=== PATIENT | female | born 1975 | race African-American/Black ===

== ENCOUNTER 2016-09-16 21:17 | Emergency (ER) | payer SELFPAY ==
[2016-09-16 21:31] VITALS: BP 193/124
[2016-09-16] MEDS ORDERED: ASPIRIN 81 MG TABLET, CHEWABLE PO ONE (21:48)
[2016-09-16] MEDS ORDERED: IPRATROPIUM/ALBUTEROL 0.5-2.5 MG/3 ML AMPUL NEB ONE (22:44)
[2016-09-16 22:55] LABS: ABSOLUTE BASOPHILS # (AUTO) 0.1 10^3/uL (0.0-0.2); ABSOLUTE EOSINOPHILS # (AUTO) 0.5 10^3/uL (0.0-0.6); ABSOLUTE LYMPHOCYTES (AUTO) 3.4 10^3/uL (0.5-4.7); ABSOLUTE MONOCYTES (AUTO) 0.7 10^3/uL (0.1-1.4); ABSOLUTE NEUT (AUTO) 6.3 10^3/uL (1.7-8.2); BASOPHILS % (AUTO) 1.3 % (0-2); EOSINOPHILS % (AUTO) 4.2 % (0-6); HEMATOCRIT 41.8 % (36.0-47.0); HEMOGLOBIN 13.4 g/dL (12.0-15.5); HGB HCT DIFFERENCE -1.6; LYMPHOCYTES % (AUTO) 31.1 % (13-45); MEAN CORPUSCULAR HEMOGLOBIN 24.5 pg (27.0-33.4); MEAN CORPUSCULAR VOLUME 77 fl (80-97); MONOCYTES % (AUTO) 6.4 % (3-13); RED BLOOD COUNT 5.45 10^6/uL (3.72-5.28); WHITE BLOOD COUNT 11.1 10^3/uL (4.0-10.5)
[2016-09-16 23:15] LABS: ALANINE AMINOTRANSFERASE 29 U/L (9-52); ALBUMIN 3.8 g/dL (3.5-5.0); ALKALINE PHOSPHATASE 63 U/L (38-126); ANION GAP 11 (5-19); ASPARTATE AMINO TRANSFERASE 16 U/L (14-36); BILIRUBIN,DIRECT 0.3 mg/dL (0.0-0.4); BILIRUBIN,TOTAL 0.5 mg/dL (0.2-1.3); BLOOD UREA NITROGEN 10 mg/dL (7-20); CALCIUM 9.3 mg/dL (8.4-10.2); CARBON DIOXIDE 30 mmol/L (22-30); CHLORIDE 99 mmol/L (98-107); CREATINE KINASE 86 U/L (30-135); CREATININE RESULT 0.78 mg/dL (0.52-1.25); GLUCOSE 130 mg/dL (75-110); POTASSIUM 3.5 mmol/L (3.6-5.0); SODIUM 139.5 mmol/L (137-145); TOTAL PROTEIN 7.5 g/dL (6.3-8.2)
[2016-09-16 23:29] LABS: CREATINE KINASE MB 0.43 ng/mL (<4.55)
[2016-09-16 23:30] LABS: TROPONIN I < 0.012 ng/mL
--- NOTE | 2016-09-17 07:11 | EKG REPORT ---
SEVERITY:- ABNORMAL ECG - SINUS RHYTHM PROBABLE LEFT ATRIAL ABNORMALITY INCOMPLETE RIGHT BUNDLE BRANCH BLOCK LEFT VENTRICULAR HYPERTROPHY : Confirmed by: Milla Arthur MD 17-Sep-2016 07:10:36
== END 2016-09-16 23:52 | disposition left against medical advice (07) ==
LOC: ER 21:17
DX: Z53.21 Procedure and treatment not carried out due to patient leaving prior to being seen by health care provider (principal)
CPT/HCPCS: 36415; 71010; 80053; 82550; 82553; 84484; 85025; 93005; 93010; 94640; J7620

== ENCOUNTER 2016-09-17 23:40 | Emergency (ER) | payer SELFPAY ==
[2016-09-18 00:23] VITALS: BP 147/113
--- NOTE | 2016-09-18 17:44 | EKG REPORT ---
SEVERITY:- ABNORMAL ECG - SINUS TACHYCARDIA PROBABLE LEFT ATRIAL ABNORMALITY INCOMPLETE RIGHT BUNDLE BRANCH BLOCK LEFT VENTRICULAR HYPERTROPHY : Confirmed by: Milla Arthur MD 18-Sep-2016 17:43:16
== END 2016-09-18 01:00 | disposition left against medical advice (07) ==
LOC: ER 23:40
DX: Z53.21 Procedure and treatment not carried out due to patient leaving prior to being seen by health care provider (principal)
CPT/HCPCS: 93005; 93010

== ENCOUNTER 2016-09-21 14:47 | Emergency (ER) | payer SELFPAY ==
[2016-09-21 15:33] VITALS: BP 152/109
[2016-09-21] MEDS ORDERED: PREDNISONE 20 MG TABLET PO ONE (15:46)
[2016-09-21] MEDS ORDERED: ALBUTEROL SULFATE 0.083% NEB 2.5 MG/3 ML AMPUL NEB ONE (15:46)
--- NOTE | 2016-09-21 15:46 | ER Document Report ---
HPI - HPI Patient complains to provider of: Wheezing, shortness of breath and productive cough Onset: Last week Onset/Duration: Persistent Quality of pain: Achy Severity: Moderate Pain Level: 3 Associated Symptoms: Chills, Productive cough, Sinus pain/drainage. denies: Fever Exacerbated by: Coughing Relieved by: Denies Similar symptoms previously: Yes Recently seen / treated by doctor: No - Came to the emergency room twice a week but LWBS - ROS ROS below otherwise negative: Yes Systems Reviewed and Negative: Yes All other systems reviewed and negative - CONSTITUTIONAL Constitutional: REPORTS: Chills. DENIES: Fever - EENT EENT: REPORTS: Congestion - NEURO Neurology: DENIES: Headache - CARDIOVASCULAR Cardiovascular: DENIES: Chest pain - RESPIRATORY Respiratory: REPORTS: Trouble Breathing, Coughing - GASTROINTESTINAL Gastrointestinal: DENIES: Abdominal Pain - URINARY Urinary: DENIES: Dysuria - REPRODUCTIVE Reproductive: DENIES: : - MUSCULOSKELETAL Musculoskeletal: REPORTS: Extremity pain - DERM Skin Color: Normal Skin Problems: None Past Medical History - General Information source: Patient - Social History Smoking Status: Never Smoker Chew tobacco use (# tins/day): No Frequency of alcohol use: None Drug Abuse: None Lives with: Family Family History: Reviewed & Not Pertinent - Past Medical History Cardiac Medical History: Reports: Hx Hypertension - Patient states she has been out of her medication for a couple of months. GI Medical History: Reports: Hx Gastritis, Hx Gastroesophageal Reflux Disease, Hx Hiatal Hernia - states had EGD and colonoscopy in 1999 in [place] which were normal - Past Surgical History: Reports: Hx Hysterectomy - Immunizations Hx Diphtheria, Pertussis, Tetanus Vaccination: Yes - 05/02/2006 Vertical Provider Document - CONSTITUTIONAL Agree With Documented VS: Yes Exam Limitations: No Limitations General Appearance: WD/WN, No Apparent Distress - INFECTION CONTROL TRAVEL OUTSIDE OF THE [place] IN LAST 30 DAYS: No - HEENT HEENT: Atraumatic, Normocephalic, Pharyngeal Erythema - mild, no exudates. negative: Pharyngeal Exudate, Tympanic Membrane Red - NECK Neck: Normal Inspection, Supple - RESPIRATORY Respiratory: Rhonchi, Wheezing O2 Sat by Pulse Oximetry: 100 - CARDIOVASCULAR Cardiovascular: Regular Rate, Regular Rhythm - GI/ABDOMEN Gastrointestinal: Abdomen Soft - MUSCULOSKELETAL/EXTREMETIES Musculoskeletal/Extremeties: CARROLL PATEL - NEURO Level of Consciousness: Awake, Alert, Appropriate - DERM Integumentary: Warm, Dry Course - Re-evaluation Re-evalutation: 09/21/16 17:52 X-ray normal and discussed with patient. After 2 nebulizer treatments and prednisone 60 mg, minimal expiratory wheezing lower lobes noted. - Vital Signs Vital signs: Temp Pulse Resp BP Pulse Ox 98.1 F 85 16 152/109 H 100 09/21/16 15:29 09/21/16 15:29 09/21/16 15:29 09/21/16 15:29 09/21/16 15:29 Discharge - Discharge Clinical Impression: Bronchitis Condition: Good Disposition: HOME, SELF-CARE Additional Instructions: Take meds as prescribed Start prednisone tomorrow as you were already given a dose today Albuterol inhaler 2 puffs every 4 hours 2 days, then every 4 hours as needed push Fluids Delsym or Robitussin for cough Follow-up with your doctor Tuesday for recheck, earlier if no improvement Return as needed Prescriptions: Azithromycin [Zithromax 250 mg Tablet] 250 mg PO ASDIR PRN #6 tablet PRN Reason: Prednisone [Deltasone 10 mg Tablet] 10 mg PO ASDIR PRN #21 tablet PRN Reason:
--- NOTE | 2016-09-21 16:42 | RADIOLOGY REPORT (SQ) ---
EXAM DESCRIPTION: CHEST PA/LAT COMPLETED DATE/TIME: 09/21/2016 4:28 pm REASON FOR STUDY: wheezing, productive cough COMPARISON: March 2016 EXAM PARAMETERS: NUMBER OF VIEWS: two views TECHNIQUE: Digital Frontal and Lateral radiographic views of the chest acquired. RADIATION DOSE: NA LIMITATIONS: none FINDINGS: LUNGS AND PLEURA: No opacities, masses or pneumothorax. No pleural effusion. MEDIASTINUM AND HILAR STRUCTURES: No masses or contour abnormalities. HEART AND VASCULAR STRUCTURES: The configuration of the heart and mediastinal structures is unchanged . BONES: Degenerative changes are identified in the thoracic spine. HARDWARE: None in the chest. OTHER: No other significant finding. IMPRESSION: No significant interval change. No acute changes. Other findings as noted above TECHNICAL DOCUMENTATION: JOB ID: [id number] [employer]- All Rights Reserved
[2016-09-21] MEDS ORDERED: IPRATROPIUM/ALBUTEROL 0.5-2.5 MG/3 ML AMPUL NEB ONE (17:14)
[2016-09-21] MEDS ORDERED: HYDROCODONE/ACETAMINOPHEN 5-325 MG TABLET PO ONE (17:47)
[2016-09-21] MEDS ORDERED: ALBUTEROL SULFATE HFA (90 MCG/PUFF) 8 GM MDI (1 MDI/ER DISP) IH ONE (17:51)
== END 2016-09-21 18:12 | disposition home or self-care (01) ==
LOC: ER 14:47
DX: J40 Bronchitis, not specified as acute or chronic (principal); R05 Cough; R68.83 Chills (without fever); J34.89 Other specified disorders of nose and nasal sinuses; R52 Pain, unspecified; R06.2 Wheezing; R06.02 Shortness of breath; I10 Essential (primary) hypertension
CPT/HCPCS: 94640 ×2; 99283; 71020; J7512; J3490; J7620

== ENCOUNTER 2016-12-14 18:30 | Emergency (ER) | payer SELFPAY ==
[2016-12-14] MEDS ORDERED: LIDOCAINE 2% VISCOUS SOLN 20 ML UDCUP PO ONE (19:17)
[2016-12-14] MEDS ORDERED: IBUPROFEN 800 MG TABLET PO ONE (19:17)
--- NOTE | 2016-12-14 19:18 | ER Document Report ---
HPI - HPI Patient complains to provider of: sore throat Onset: Other - 3 days Onset/Duration: Gradual Quality of pain: Achy Pain Level: 3 Context: Patient presents complaining of sore throat for the past 3 days. Patient does complain of fever and chills. Patient additionally complains of left forearm tenderness that she has had ever since having an IV infiltrate from March of last year. Patient denies any new injury to the left forearm. Associated Symptoms: Chills, Fever, Sore throat. denies: Headache, Nausea, Vomiting Exacerbated by: Denies Relieved by: Denies Similar symptoms previously: Yes Recently seen / treated by doctor: No - ROS ROS below otherwise negative: Yes Systems Reviewed and Negative: Yes All other systems reviewed and negative - CONSTITUTIONAL Constitutional: REPORTS: Fever, Chills - EENT EENT: REPORTS: Sore Throat. DENIES: Ear Pain, Congestion - RESPIRATORY Respiratory: DENIES: Coughing - GASTROINTESTINAL Gastrointestinal: DENIES: Nausea, Patient vomiting - REPRODUCTIVE Reproductive: DENIES: : - MUSCULOSKELETAL Musculoskeletal: REPORTS: Extremity pain - DERM Skin Color: Normal Skin Problems: None Past Medical History - General Information source: Patient - Social History Smoking Status: Never Smoker Frequency of alcohol use: None Drug Abuse: None Occupation: [employer] Family History: Reviewed & Not Pertinent Patient has suicidal ideation: No Patient has homicidal ideation: No - Past Medical History Cardiac Medical History: Reports: Hx Hypertension - Patient states she has been out of her medication for a couple of months. Denies: Hx Coronary Artery Disease, Hx DVT, Hx Heart Attack Renal/ Medical History: Denies: Hx Peritoneal Dialysis GI Medical History: Reports: Hx Gastritis, Hx Gastroesophageal Reflux Disease, Hx Hiatal Hernia - states had EGD and colonoscopy in 1999 in [place] which were normal -. Denies: Hx Crohn's Disease, Hx Diverticulitis, Hx Hepatitis, Hx Irritable Bowel, Hx Liver Failure Infectious Medical History: Denies: Hx Hepatitis Past Surgical History: Reports: Hx Hysterectomy - Immunizations Hx Diphtheria, Pertussis, Tetanus Vaccination: Yes - 05/02/2006 Vertical Provider Document - CONSTITUTIONAL Agree With Documented VS: Yes Exam Limitations: No Limitations General Appearance: WD/WN, No Apparent Distress - INFECTION CONTROL TRAVEL OUTSIDE OF THE [place] IN LAST 30 DAYS: No - HEENT HEENT: Atraumatic, Normocephalic, Pharyngeal Tenderness, Pharyngeal Erythema Notes: 3+tonsilar hypertrophy - NECK Neck: Normal Inspection, Supple. negative: Lymphadenopathy-Left, Lymphadenopathy-Right - RESPIRATORY Respiratory: Breath Sounds Normal, No Respiratory Distress, Chest Non-Tender O2 Sat by Pulse Oximetry: 98 - CARDIOVASCULAR Cardiovascular: Regular Rate, Regular Rhythm Pulses: Normal: Radial - BACK Back: Normal Inspection - MUSCULOSKELETAL/EXTREMETIES Musculoskeletal/Extremeties: MAEW, FROM, Tender - Generalized tenderness to the volar aspect of left forearm, no abscess, normal skin color and temperature, normal strength to left upper extremity - NEURO Level of Consciousness: Awake, Alert, Appropriate Motor/Sensory: No Motor Deficit - DERM Integumentary: Warm, Dry, No Rash Course - Re-evaluation Re-evalutation: 12/14/16 20:35 The patient has been informed that they may have pre-hypertension or hypertension based on a blood pressure reading in the emergency department. I recommend that patient call the primary care provider listed on their discharge instructions or a physician of their choice by this week to arrange follow-up for further evaluation of possible pre-hypertension or hypertension. 12/14/16 21:10 Patient advised to follow-up with a care provider for further evaluation of chronic forearm tenderness - Vital Signs Vital signs: Temp Pulse Resp BP Pulse Ox 100.0 F 103 H 156/111 H 98 12/14/16 18:41 12/14/16 18:41 12/14/16 18:41 12/14/16 18:41 - Laboratory Laboratory results interpreted by me: 12/14/16 20:33 Labs- Entire Visit 12/14/16 19:36 Group A Strep Rapid NEGATIVE Discharge - Discharge Clinical Impression: Tonsillitis, Elevated blood pressure reading Condition: Stable Disposition: HOME, SELF-CARE Instructions: Tonsillitis ([facility]), Oral Narcotic Medication ([facility]), Use of Over- The-Counter Ibuprofen ([facility]), Corticosteroid Medication ([facility]) Additional Instructions: Return immediately for any new or worsening symptoms Followup with your primary care provider, call tomorrow to make a followup appointment Throat culture is pending, we will call if you need any different treatment Prescriptions: Naproxen [Naprosyn 250 Nmg Tablet] 1 tab PO BID #14 tablet Forms: Elevated Blood Pressure, Return to Work Referrals: [facility] [Provider Group] - Follow up as needed [facility] [Provider Group] - Follow up as needed
[2016-12-14] MEDS ORDERED: HYDROCODONE/ACETAMINOPHEN 5-325 MG 6 TAB/DSPK PO PRN (20:32)
[2016-12-14] MEDS ORDERED: DEXAMETHASONE 4 MG TABLET PO ONE (20:32)
[2016-12-14 20:58] VITALS: BP 153/100
== END 2016-12-14 20:55 | disposition home or self-care (01) ==
LOC: ER 18:30
DX: J03.90 Acute tonsillitis, unspecified (principal); R03.0 Elevated blood-pressure reading, without diagnosis of hypertension; R50.9 Fever, unspecified; Z90.710 Acquired absence of both cervix and uterus
CPT/HCPCS: 99283; 87070; 87880; J3490

== ENCOUNTER 2016-12-30 14:19 | Emergency (ER) | payer SELFPAY ==
[2016-12-30] MEDS ORDERED: IPRATROPIUM/ALBUTEROL 0.5-2.5 MG/3 ML AMPUL NEB ONE (15:09)
--- NOTE | 2016-12-30 15:11 | ER Document Report ---
ED Medical Screen (RME) - General Chief Complaint: Cough Stated Complaint: COUGH Time Seen by Provider: 12/30/16 15:09 Mode of Arrival: Ambulatory Information source: Patient Notes: 41-year-old female with a history of hypertension, morbid obesity who presents to the emergency room with drills, fever, cough productive of green sputum, shortness of breath. Patient also states that she checked her sugar (her friend 's glucometer) and it was 200 yesterday. TRAVEL OUTSIDE OF THE [place] IN LAST 30 DAYS: No - Related Data Allergies/Adverse Reactions: creosote Allergy (Mild, Uncoded 12/30/16 14:24) Anaphylaxis Past Medical History - Social History Chew tobacco use (# tins/day): No Frequency of alcohol use: None Drug Abuse: None - Past Medical History Cardiac Medical History: Reports: Hx Hypertension - Patient states she has been out of her medication for a couple of months. Denies: Hx Coronary Artery Disease, Hx DVT, Hx Heart Attack Renal/ Medical History: Denies: Hx Peritoneal Dialysis GI Medical History: Reports: Hx Gastritis, Hx Gastroesophageal Reflux Disease, Hx Hiatal Hernia - states had EGD and colonoscopy in 1999 in [place] which were normal -. Denies: Hx Crohn's Disease, Hx Diverticulitis, Hx Hepatitis, Hx Irritable Bowel, Hx Liver Failure Infectious Medical History: Denies: Hx Hepatitis Past Surgical History: Reports: Hx Hysterectomy - Immunizations Hx Diphtheria, Pertussis, Tetanus Vaccination: Yes - 05/02/2006 Physical Exam - Vital signs Vitals: Temp Pulse Resp BP Pulse Ox 98.7 F 87 22 H 191/113 H 97 12/30/16 14:25 12/30/16 14:25 12/30/16 14:25 12/30/16 14:25 12/30/16 14:25 Notes: Physical exam: GENERAL: 41-year-old female, alert and oriented 3, no acute distress. She does appear congested. HEAD: Atraumatic, normocephalic. EYES: Pupils equal round and reactive to light, extraocular movements intact, sclera anicteric, conjunctiva are normal. ENT: TMs normal, nares patent, oropharynx clear without exudates. Moist mucous membranes. NECK: Normal range of motion, supple without ovious mass or JVD. LUNGS: Breath sounds clear to auscultation bilaterally and equal. No wheezes rales or rhonchi. HEART: Regular rate and rhythm without murmurs, rubs or gallops. ABDOMEN: Soft, normoactive bowel sounds. No tenderness to palpation. No guarding, no rebound. No masses appreciated. EXTREMITIES: Normal range of motion, no pitting or edema. No clubbing or cyanosis. NEUROLOGICAL: Cranial nerves II through XII grossly intact. Normal speech, moving all extremities. PSYCH: Normal mood, normal affect. SKIN: Warm, Dry, normal turgor, no rashes or lesions noted. Course - Vital Signs Vital signs: Temp Pulse Resp BP Pulse Ox 98.7 F 87 22 H 191/113 H 97 12/30/16 14:25 12/30/16 14:25 12/30/16 14:25 12/30/16 14:25 12/30/16 14:25
--- NOTE | 2016-12-30 15:36 | ER Document Report ---
ED General - General Mode of Arrival: Ambulatory Information source: Patient TRAVEL OUTSIDE OF THE [place] IN LAST 30 DAYS: No - HPI Onset: Other - Refer to HPI notes; x2 weeks Associated symptoms: Chest pain, Chills, Productive cough, Fever Similar symptoms previously: No Recently seen / treated by doctor: No <JAYNE GARCIA - Last Filed: 12/30/16 16:04> <ROB MORAN - Last Filed: 12/30/16 18:44> - General Chief Complaint: Cough Stated Complaint: COUGH Time Seen by Provider: 12/30/16 15:29 - HPI Notes: Patient is a 41-year-old female presenting emergency department with 2 weeks of multiple URI symptoms. Patient states that for the first week she had aches, chills and fevers. Patient states the second week she had some chest pain with cough, increased congestion, and green and brown sputum. Patient states her cough is only been present for the past 3 days. Patient states that she has not had a fever for the past week and half. Patient does not take any regular medications. Patient historically took hypertension medications but states that she is treating hypertension with diet. According to the patient's blood pressure in our records over a long period of time the patient does have history of hypertension. Patient also checked her blood glucose level with her friends glucose meter 2 days ago and the level was 200. Patient states that she took her blood glucose level because she had a dry mouth. (JAYNE GARCIA) - Related Data Allergies/Adverse Reactions: creosote Allergy (Mild, Uncoded 12/30/16 14:24) Anaphylaxis Past Medical History - General Information source: Patient - Social History Smoking Status: Never Smoker Cigarette use (# per day): No Chew tobacco use (# tins/day): No Frequency of alcohol use: None Drug Abuse: None Family History: None Patient has suicidal ideation: No Patient has homicidal ideation: No - Past Medical History Cardiac Medical History: Reports: Hx Hypertension - Not medicated or controlled. GI Medical History: Reports: Hx Gastritis, Hx Gastroesophageal Reflux Disease, Hx Hiatal Hernia - states had EGD and colonoscopy in 1999 in [place] which were normal - Past Surgical History: Reports: Hx Hysterectomy - Immunizations Hx Diphtheria, Pertussis, Tetanus Vaccination: Yes - 05/02/2006 <JAYNE GARCIA - Last Filed: 12/30/16 16:04> Review of Systems - Review of Systems Constitutional: See HPI, Chills, Fever, Malaise EENT: No symptoms reported Cardiovascular: No symptoms reported Respiratory: See HPI, Cough, Sputum, Wheezing Gastrointestinal: No symptoms reported Genitourinary: No symptoms reported Female Genitourinary: No symptoms reported Musculoskeletal: No symptoms reported Skin: No symptoms reported Hematologic/Lymphatic: No symptoms reported Neurological/Psychological: No symptoms reported -: Yes All other systems reviewed and negative <JAYNE GARCIA - Last Filed: 12/30/16 16:04> Physical Exam - Vital signs Interpretation: Hypertensive <JAYNE GARCIA - Last Filed: 12/30/16 16:04> <ROB MORAN - Last Filed: 12/30/16 18:44> - Vital signs Vitals: Temp Pulse Resp BP Pulse Ox 98.7 F 87 22 H 191/113 H 97 12/30/16 14:25 12/30/16 14:25 12/30/16 14:25 12/30/16 14:25 12/30/16 14:25 - Notes Notes: GENERAL: Alert, interacts well. No acute distress. HEAD: Normocephalic, atraumatic. EYES: Appear normal. Pupils equal, round, and reactive to light. ENT: Moist mucus membranes, tongue midline. NECK: Full range of motion. Supple. Trachea midline. LUNGS: C coarse breath sounds throughout, faint wheezing. No respiratory distress. HEART: Regular rate and rhythm. No murmurs, gallops, or rubs. ABDOMEN: Morbidly obese. Soft, non-tender. Non-distended. Normal bowel sounds. EXTREMITIES: Moves all 4 extremities spontaneously. Normal strength. Trace edema to the bilateral lower extremities. NEUROLOGICAL: Alert and oriented x3. Normal speech. No focal neurological deficits. GSC 15. PSYCH: Normal affect, normal mood. SKIN: Warm, dry, normal turgor. No rashes or lesions noted. (JAYNE GARCIA) Course - Laboratory Result Diagrams: 12/30/16 15:18 12/30/16 15:18 <JAYNE GARCIA - Last Filed: 12/30/16 16:04> - Laboratory Result Diagrams: 12/30/16 15:18 12/30/16 15:18 <ROB MORAN - Last Filed: 12/30/16 18:44> - Vital Signs Vital signs: Temp Pulse Resp BP Pulse Ox 98.7 F 87 22 H 191/113 H 97 12/30/16 14:25 12/30/16 14:25 12/30/16 14:25 12/30/16 14:25 12/30/16 14:25 - Laboratory Laboratory results interpreted by me: 12/30/16 12/30/16 12/30/16 15:18 15:18 15:18 RBC 5.29 H MCV 77 L MCH 25.3 L RDW 16.2 H Glucose 147 H Hemoglobin A1c % 7.2 H Discharge <JAYNE GARCIA - Last Filed: 12/30/16 16:04> <ROB MORAN - Last Filed: 12/30/16 18:44> - Discharge Clinical Impression: Viral upper respiratory tract infection with cough High blood pressure Qualifiers: Hypertension type: essential hypertension Qualified Code(s): I10 - Essential ( primary) hypertension Diabetes Qualifiers: Diabetes mellitus type: type 2 Diabetes mellitus complication status: without complication Diabetes mellitus nursing home insulin use: without nursing home use Qualified Code(s): E11.9 - Type 2 diabetes mellitus without complications Condition: Stable Disposition: HOME, SELF-CARE Additional Instructions: Upper Respiratory Illness: You have a viral infection of the respiratory passages -- a "cold." This common infection causes nasal congestion, drainage, and often sore throat and cough. It is caused by a virus and is highly contagious. The disease usually lasts a week or more, though the worst symptoms are usually over in 3 or 4 days. There is no "cure" for the viral infection -- it must run its course. If there is a complication, such as bacterial infection in the nose, sinuses, middle ear, or bronchial tubes, antibiotics may be required, but antibiotics won 't affect the virus. If you smoke, you should STOP!! Drink plenty of fluids. A humidifier may help. An expectorant medication or decongestant may make you more comfortable. Use acetaminophen or ibuprofen for fever or aches. See the doctor if fever persists over two or three days, if there is any significant worsening of your symptoms, or if you simply fail to improve as expected. High Blood Pressure, Requiring Treatment Your blood pressure is high. This is called "hypertension." Today's reading was_191/113_ (normal is less than 140/90). Your history and exam suggest that this is not a temporary problem. You need treatment of your blood pressure. If left untreated, high blood pressure greatly increases your risk of heart attack and stroke. Please don't ignore this problem. If you have blood pressure medicine but aren't using it regularly, start taking it again. Some simple things you can do to help are: Get some aerobic exercise for at least 20 minutes on a daily basis. (See your doctor before beginning any new exercise program.) Eat a low-fat diet. Lose excess weight. Avoid salty foods and avoid adding salt to any of the foods you eat. Avoid diet pills, decongestants, "energizing" herbs, and other medicines that elevate blood pressure. There are many different medicines that treat blood pressure. If your medication causes unpleasant side effects, call your doctor. There are others you can try. Treating hypertension is a life-long investment in your health. Diabetes: You have an abnormally high blood sugar, consistent with diabetes. All diabetics should follow a diet designed to control the blood sugar. Overweight diabetics should exercise regularly and lose weight. Home testing of blood sugars or urine sugar is required. Diabetic teaching is available to help you figure insulin doses and monitor the blood sugar. Call the physician if there is faintness, excess sleepiness, or very rapid breathing. If hypoglycemia (LOW blood sugar) develops, symptoms are shakiness, weakness, sweating, and confusion. In this case, you should eat or drink something with sugar at once. /////////////////////////////////////////////////////////////////////////////// //////////////////////////////////////////////////////////////////////////////// ///////////////// Take the medications as prescribed for blood pressure and high blood sugars. Try generic version of Robitussin-DM to help control your cough and congestion. Drink plenty of fluids and get plenty of rest. Follow-up with a local medical doctor to monitor your blood pressure and blood sugars, and to adjust medications as needed. Check your blood sugars at home on a daily basis. RETURN TO THE EMERGENCY ROOM IF ANY NEW OR WORSENING SYMPTOMS. Prescriptions: Lisinopril 20 mg PO DAILY #30 tablet Metformin HCl [Glucophage] 500 mg PO DAILY #30 tablet Referrals: [facility] [Provider Group] - Follow up in 1 week Scribe Attestation: 12/30/16 17:00 I personally performed the services described in the documentation, reviewed and edited the documentation which was dictated to the scribe in my presence, and it accurately records my words and actions. (ROB MORAN) Scribe Documentation - Scribe Written by Lidia:: Lidia Simmons, 12/30/2016 1615 acting as scribe for :: Joshua <JAYNE GARCIA - Last Filed: 12/30/16 16:04>
[2016-12-30 15:41] LABS: ABSOLUTE BASOPHILS # (AUTO) 0.1 10^3/uL (0.0-0.2); ABSOLUTE EOSINOPHILS # (AUTO) 0.2 10^3/uL (0.0-0.6); ABSOLUTE MONOCYTES (AUTO) 0.8 10^3/uL (0.1-1.4); ABSOLUTE NEUT (AUTO) 5.5 10^3/uL (1.7-8.2); BASOPHILS % (AUTO) 1.1 % (0-2); EOSINOPHILS % (AUTO) 2.1 % (0-6); HEMATOCRIT 40.6 % (36.0-47.0); HEMOGLOBIN 13.4 g/dL (12.0-15.5); HGB HCT DIFFERENCE -0.4; LYMPHOCYTES % (AUTO) 31.2 % (13-45); MEAN CORPUSCULAR HEMOGLOBIN 25.3 pg (27.0-33.4); MEAN CORPUSCULAR HGB CONC 32.9 g/dL (32.0-36.0); MEAN CORPUSCULAR VOLUME 77 fl (80-97); MONOCYTES % (AUTO) 8.3 % (3-13); RED BLOOD COUNT 5.29 10^6/uL (3.72-5.28); RED CELL DISTRIBUTION WIDTH 16.2 % (11.5-14.0); SEGMENTED NEUTROPHILS % (AUTO) 57.3 % (42-78); WHITE BLOOD COUNT 9.7 10^3/uL (4.0-10.5)
--- NOTE | 2016-12-30 15:56 | RADIOLOGY REPORT (SQ) ---
EXAM DESCRIPTION: CHEST PA/LAT COMPLETED DATE/TIME: 12/30/2016 3:31 pm REASON FOR STUDY: productive cough COMPARISON: 09/21/2016 EXAM PARAMETERS: NUMBER OF VIEWS: two views TECHNIQUE: Digital Frontal and Lateral radiographic views of the chest acquired. RADIATION DOSE: NA LIMITATIONS: none FINDINGS: LUNGS AND PLEURA: No opacities, masses or pneumothorax. No pleural effusion. MEDIASTINUM AND HILAR STRUCTURES: No masses or contour abnormalities. HEART AND VASCULAR STRUCTURES: Heart normal size. No evidence for failure. BONES: No acute findings. HARDWARE: None in the chest. OTHER: No other significant finding. IMPRESSION: NO SIGNIFICANT RADIOGRAPHIC FINDING IN THE CHEST. TECHNICAL DOCUMENTATION: JOB ID: [id number] [employer]- All Rights Reserved
[2016-12-30 16:07] LABS: ALANINE AMINOTRANSFERASE 23 U/L (9-52); ALBUMIN 3.9 g/dL (3.5-5.0); ALKALINE PHOSPHATASE 71 U/L (38-126); ANION GAP 13 (5-19); ASPARTATE AMINO TRANSFERASE 18 U/L (14-36); BILIRUBIN,DIRECT 0.4 mg/dL (0.0-0.4); BILIRUBIN,TOTAL 0.7 mg/dL (0.2-1.3); BLOOD UREA NITROGEN 10 mg/dL (7-20); CALCIUM 9.6 mg/dL (8.4-10.2); CARBON DIOXIDE 27 mmol/L (22-30); CHLORIDE 102 mmol/L (98-107); CREATININE RESULT 0.76 mg/dL (0.52-1.25); GLUCOSE 147 mg/dL (75-110); POTASSIUM 3.6 mmol/L (3.6-5.0); SODIUM 141.6 mmol/L (137-145); TOTAL PROTEIN 7.5 g/dL (6.3-8.2)
[2016-12-30 18:57] VITALS: BP 178/121
== END 2016-12-30 18:50 | disposition home or self-care (01) ==
LOC: ER 14:19
DX: J06.9 Acute upper respiratory infection, unspecified (principal); I10 Essential (primary) hypertension; E11.9 Type 2 diabetes mellitus without complications; R05 Cough; M79.1 Myalgia; R50.9 Fever, unspecified; R07.9 Chest pain, unspecified; R09.81 Nasal congestion
CPT/HCPCS: 94640; 99283; 36415; 85025; 80053; 83036; 71020; J7620

== ENCOUNTER 2018-03-27 12:30 | Emergency (ER) | payer SELFPAY ==
[2018-03-27] MEDS ORDERED: KETOROLAC TROMETHAMINE 60 MG/2 ML SDV IM ONE (14:08)
--- NOTE | 2018-03-27 14:13 | ER Document Report ---
ED General - General Chief Complaint: Low Back Pain Stated Complaint: BACK PAIN/NUMBNESS IN FINGERS Time Seen by Provider: 03/27/18 13:57 TRAVEL OUTSIDE OF THE [place] IN LAST 30 DAYS: No - HPI Notes: Patient is a 43-year-old female that presents to the emergency department for chief complaint of low back pain and right wrist pain. Patient presents for back pain that started 2 weeks ago. She states it is in her lower back and worse with movement. She has tried icy hot at home with some relief. She denies any injury or trauma. She denies any fevers or chills , saddle anesthesia, lower extremity numbness or weakness and bowel and bladder incontinence. She also reports numbness in her fingertips on her right hand as well as aching in her right wrist. 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 Patient does states she has prolonged periods of sitting at work. Past Medical History: Hypertension Past Surgical History: Negative Social History: Denies drugs alcohol and tobacco Family History: Reviewed and noncontributory for presenting illness Allergies: Reviewed, see documented allergy list. REVIEW OF SYSTEMS: CONSTITUTIONAL : No fever No chills No diaphoresis No recent illness EENT: No vision changes No congestion No sore throat CARDIOVASCULAR: No chest pain No palpitations RESPIRATORY: No shortness of breath No cough No difficulty breathing GASTROINTESTINAL: No abdominal pain No nausea No vomiting No diarrhea GENITOURINARY: No dysuria No hematuria No difficulty urinating MUSCULOSKELETAL: back pain No leg pain right wrist pain SKIN: No rashes No lesions LYMPHATIC: No swollen, enlarged glands. NEUROLOGICAL: No lightheadedness No headache No weakness No paresthesias PSYCHIATRIC: No anxiety No depression PHYSICAL EXAMINATION: Vital signs reviewed, nursing noted reviewed. GENERAL: Well-appearing, well-nourished and in no acute distress. HEAD: Atraumatic, normocephalic. EYES: Eyes appear normal, extraocular movements intact, sclera anicteric, conjunctiva are normal. ENT: nares patent, oropharynx clear without exudates. Moist mucous membranes. NECK: Normal range of motion, supple without lymphadenopathy LUNGS: Breath sounds clear to auscultation bilaterally and equal. No wheezes rales or rhonchi. HEART: Regular rate and rhythm without murmurs ABDOMEN: Soft, nontender, normoactive bowel sounds. No rebound, guarding, or rigidity. No masses appreciated. EXTREMITIES: Positive Phalen's sign on right. Nontender, good range of motion, no pitting or edema. Back: No midline thoracic or lumbar tenderness, normal range of motion. Right lumbar paraspinal muscle tenderness and spasm. No overlying erythema NEUROLOGICAL: No focal neurological deficits. Moves all extremities spontaneously Motor and sensory grossly intact on exam. PSYCH: Normal mood, normal affect. SKIN: Warm, Dry, normal turgor, no rashes or lesions noted on exposed skin - Related Data Allergies/Adverse Reactions: creosote Allergy (Mild, Uncoded 12/30/16 14:24) Anaphylaxis Past Medical History - Social History Smoking Status: Never Smoker Chew tobacco use (# tins/day): No Frequency of alcohol use: None Drug Abuse: None Family History: None Patient has suicidal ideation: No Patient has homicidal ideation: No - Past Medical History Cardiac Medical History: Reports: Hx Hypertension - Not medicated or controlled. Denies: Hx Coronary Artery Disease, Hx DVT, Hx Heart Attack Renal/ Medical History: Denies: Hx Peritoneal Dialysis GI Medical History: Reports: Hx Gastritis, Hx Gastroesophageal Reflux Disease, Hx Hiatal Hernia - states had EGD and colonoscopy in 1999 in [place] which were normal -. Denies: Hx Crohn's Disease, Hx Diverticulitis, Hx Hepatitis, Hx Irritable Bowel, Hx Liver Failure Infectious Medical History: Denies: Hx Hepatitis Past Surgical History: Reports: Hx Hysterectomy - Immunizations Hx Diphtheria, Pertussis, Tetanus Vaccination: Yes - 05/02/2006 Physical Exam - Vital signs Vitals: Temp Pulse Resp BP Pulse Ox 98.1 F 75 18 161/121 H 97 03/27/18 13:00 03/27/18 13:00 03/27/18 13:00 03/27/18 13:00 03/27/18 13:00 Course - Re-evaluation Re-evalutation: 03/27/18 14:12 Vitals reviewed. Nursing notes reviewed. Patient has no focal neurologic deficits or signs of cauda equina syndrome, transverse myelitis or epidural abscess. Her back pain is musculoskeletal and will be treated with muscle relaxers and anti-inflammatories. She has no history of injury and I do not suspect spinal fracture. Imaging not currently indicated for her low back pain. Patient has positive Phalen sign on her right hand consistent with carpal tunnel. She will be given a cockup wrist splint for her right hand. Patient was referred to primary care for follow-up of both of these issues. I did discuss stretching and strengthening techniques for her back. She is stable at time of discharge. Counseled on return precautions and verbalized understanding. - Vital Signs Vital signs: Temp Pulse Resp BP Pulse Ox 98.1 F 75 18 161/121 H 97 03/27/18 13:00 03/27/18 13:00 03/27/18 13:00 03/27/18 13:00 03/27/18 13:00 Discharge - Discharge Clinical Impression: Right carpal tunnel syndrome Right low back pain Qualifiers: Chronicity: acute Sciatica presence: without sciatica Qualified Code(s): M54.5 - Low back pain Condition: Stable Disposition: HOME, SELF-CARE Instructions: Low Back Pain ([facility]), Family Physicians / Practices, Carpal Tunnel Syndrome ([facility]) Additional Instructions: Please return to the emergency department if you have any worsening, or concern of your symptoms. Please return to the emergency department if you develop chest pain, difficulty breathing, severe abdominal pain, or ongoing vomiting. Please follow-up with your primary care physician in 2-3 days and any other recommended physicians. If prescribed, take all medications as directed. If you have any questions or concerns do not hesitate to return the emergency department for evaluation. [] Prescriptions: Cyclobenzaprine HCl [Flexeril 5 mg Tablet] 5 mg PO TID PRN #15 tablet PRN Reason: pain Naproxen 500 mg PO BID PRN #30 tablet PRN Reason: Pain Scale Of 1 Forms: Return to Work Referrals: [facility] [Provider Group] - Follow up in 3-5 days
[2018-03-27 14:50] VITALS: BP 154/98
== END 2018-03-27 14:49 | disposition home or self-care (01) ==
LOC: ER 12:30
DX: G56.01 Carpal tunnel syndrome, right upper limb (principal); M54.5 Low back pain; I10 Essential (primary) hypertension; Z87.892 Personal history of anaphylaxis; Z91.048 Other nonmedicinal substance allergy status
CPT/HCPCS: 99283; 96372; L3908; J1885

== ENCOUNTER 2018-08-22 16:03 | Emergency (ER) | payer BC ==
[2018-08-22] MEDS ORDERED: LIDOCAINE 5% (700 MG) TRANSDERMAL ADH..PATCH TP ONE (16:35)
[2018-08-22] MEDS ORDERED: ACETAMINOPHEN 325 MG TABLET PO ONE (16:35)
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
--- NOTE | 2018-08-22 17:03 | RADIOLOGY REPORT (SQ) ---
EXAM DESCRIPTION: KNEE LEFT 4 VIEW COMPLETED DATE/TIME: 08/22/2018 4:52 pm REASON FOR STUDY: L knee pain COMPARISON: None. NUMBER OF VIEWS: Four views. TECHNIQUE: AP, lateral, and both oblique radiographic images acquired of the left knee. LIMITATIONS: None. FINDINGS: MINERALIZATION: Normal. BONES: No acute fracture or dislocation. No worrisome bone lesions. JOINT: No effusion. SOFT TISSUES: No soft tissue swelling. No radio-opaque foreign body. OTHER: No other significant finding. IMPRESSION: NEGATIVE STUDY OF THE LEFT KNEE. NO RADIOGRAPHIC EVIDENCE OF ACUTE INJURY. TECHNICAL DOCUMENTATION: JOB ID: [id number] [employer]- All Rights Reserved Reading location - IP/workstation name: [email or web address]
[2018-08-22 17:51] VITALS: BP 162/118
== END 2018-08-22 17:30 | disposition home or self-care (01) ==
LOC: ER 16:03
DX: M25.562 Pain in left knee (principal); I10 Essential (primary) hypertension; E66.9 Obesity, unspecified; Z68.43 Body mass index [BMI] 50.0-59.9, adult
CPT/HCPCS: 99283